=== PATIENT | female | born 1990 | race Two or more races ===

== ENCOUNTER 2017-07-30 08:08 | Inpatient (IN) | payer MEDICAID, OTHER ==
[~2017-07-30] VITALS: Ht 152.4 cm; Wt 97.0 kg
[~2017-07-30 08:08] MED LIST: ONDA4TAB12 PO
[2017-07-30] MEDS ORDERED: normal saline 1000ML IV soln IV ONE (08:25)
[2017-07-30] MEDS ORDERED: acetaminophen 325mg tablet PO ONE (08:25)
[2017-07-30 08:56] LABS: BASOPHILS % (AUTO) 0.5 % (0-1); EOSINOPHILS % (AUTO) 0 % (0-6); HEMATOCRIT 33.1 % (35.0-45.0); HEMOGLOBIN 11.1 g/dl (12.0-16.0); LYMPHOCYTES # (AUTO) 1.5 X10'3 (1.1-4.8); LYMPHOCYTES % (AUTO) 16.3 % (21-51); MEAN CORPUSCULAR HEMOGLOBIN 25.4 PG (27.0-31.0); MEAN CORPUSCULAR HGB CONC 33.4 % (33.0-36.5); MEAN CORPUSCULAR VOLUME 76.1 FL (78-98); MEAN PLATELET VOLUME 8.5 FL (7.4-10.4); MONOCYTES # (AUTO) 0.4 X10'3 (0-0.9); MONOCYTES % (AUTO) 3.9 % (2-12); NEUTROPHILS # (AUTO) 7.5 X10'3 (1.8-7.7); NEUTROPHILS % (AUTO) 79.3 % (42-75); PLATELET COUNT 288 X10'3 (140-440); RED BLOOD COUNT 4.35 X10'6 (4.20-5.60); RED CELL DISTRIBUTION WIDTH 17.4 % (11.5-14.5); WHITE BLOOD COUNT 9.4 X10'3 (4.5-11.0)
[2017-07-30 09:05] LABS: INR 1.2 INR; PARTIAL THROMBOPLASTIN TIME 29 SECONDS (22-32); PROTHROMBIN TIME 12.6 SECONDS (9.0-12.0)
[2017-07-30 09:09] LABS: ALANINE AMINOTRANSFERASE 38 U/L (12-78); ALBUMIN 2.9 G/DL (3.4-5.0); ALBUMIN/GLOBULIN RATIO 0.6 (1.1-1.5); ALKALINE PHOSPHATASE 74 IU/L (46-116); ANION GAP 11 (8-16); ASPARTATE AMINO TRANSFERASE 44 U/L (10-37); BILIRUBIN,TOTAL 0.9 MG/DL (0.1-1.0); BLOOD UREA NITROGEN 13 MG/DL (7-18); BUN/CREATININE RATIO 11.5 (6.6-38.0); CALCIUM 7.9 MG/DL (8.5-10.1); CHLORIDE 93 MMOL/L (99-107); CREATININE 1.13 MG/DL (0.40-0.90); GLUCOSE 108 MG/DL (70-104); SODIUM 130 MMOL/L (135-145); TOTAL CARBON DIOXIDE 26.5 MMOL/L (24-32); TOTAL PROTEIN 7.7 G/DL (6.4-8.2); eGFR 59 ML/MIN
[2017-07-30] MEDS ORDERED: potassium Cl 20 mEq SR tablet PO STA (09:39)
[2017-07-30] MEDS ORDERED: albuterol 2.5 MG/3 ML nebule NEB ONE (10:35)
[2017-07-30] MEDS ORDERED: levoFLOXACIN-Levaquin 750MG/D5 150 ML IV STA (10:37)
[2017-07-30] MEDS ORDERED: mag hydrox/Alum hydrox/simeth 30ml oral suspension PO PRN (11:25)
[2017-07-30] MEDS ORDERED: magnesium hydroxide 30ml (MOM) UD suspension PO PRN (11:25)
[2017-07-30] MEDS ORDERED: magnesium 4gm in 100ml NS 100 ML IV PRN (11:25)
[2017-07-30] MEDS ORDERED: bisacodyl 10mg suppository rectal RC PRN (11:25)
[2017-07-30] MEDS ORDERED: magnesium Cl slow-release 64mg tablet PO PRN (11:25)
[2017-07-30] MEDS ORDERED: magnesium 2GM in 50ml NS 50 ML IV PRN (11:25)
[2017-07-30] MEDS ORDERED: potassium Cl 40MEQ/NS 500ml 500 ML IV PRN ×2 (11:25)
[2017-07-30] MEDS ORDERED: potassium Cl 20 mEq SR tablet PO PRN ×2 (11:25)
[2017-07-30] MEDS: K and/or MAG REPLACEMENT MC SCH (11:59)
[2017-07-30 12:22] LABS: MAGNESIUM 1.8 MG/DL (1.5-2.4)
[2017-07-30 13:07] LABS: URINE HCG NEGATIVE (NEG)
[2017-07-30 13:24] LABS: URINE AMPHETAMINE SCREEN NEGATIVE (Neg); URINE BARBITUATE SCREEN NEGATIVE (Neg); URINE BENZODIAZEPINES SCREEN NEGATIVE (Neg); URINE CANNABINOID SCREEN NEGATIVE (Neg); URINE COCAINE SCREEN NEGATIVE (Neg); URINE METHADONE SCREEN NEGATIVE (Neg); URINE OPIATE SCREEN NEGATIVE (Neg); URINE PHENCYCLIDINE SCREEN NEGATIVE (Neg)
[2017-07-30 13:39] LABS: CLARITY,URINE CLOUDY (Clear); COLOR,URINE YELLOW (Yellow); GLUCOSE, URINE NEGATIVE (Neg); KETONES,URINE 40 mg/dl (Neg); LEUKOCYTE ESTERASE ,URINE LARGE (Neg); NITRITES, URINE NEGATIVE (Neg); OCCULT BLOOD,URINE MODERATE (Neg); PH,URINE 5.5 (4.8-8.0); PROTEIN,URINE NEGATIVE (Neg); UROBILINOGEN,URINE 0.2 E.U/dL (0.2-1.0)
[2017-07-30 13:42] LABS: UA COLLECTION TYPE CLN CATCH MIDSTREAM
[2017-07-30 13:50] LABS: BACTERIA,URINE 4+ /HPF (Neg); HYALINE CASTS 0-3 /LPF (NEGATIVE); MUCUS STRANDS MODERATE /LPF (Neg); RBC,URINE 0-2 /HPF (0-2); SQUAMOUS EPITHELIAL CELL,UR MODERATE /LPF (FEW)
[2017-07-30 13:51] LABS: CELLULAR CAST 0-4 /LPF (NEGATIVE)
[2017-07-30 14:50] VITALS: BP 117/62
[2017-07-30 15:00] VITALS: BP 104/55
[2017-07-30] MEDS: potassium CL 20mEq in D5-1/2NS 1,000 ML IV SCH (17:15)
[2017-07-30 20:00] VITALS: BP 101/57
[2017-07-30] MEDS: docusate sod 100mg capsule PO SCH (20:00)
[2017-07-30] MEDS: ipratropium/albuterol 3ml nebule NEB SCH (21:48)
[2017-07-31] VITALS: BP 108/59
[2017-07-31] MEDS ORDERED: ALBU8.5H8 IH (01:07)
[2017-07-31] MEDS ORDERED: BUDE10.22 INH (01:07)
[2017-07-31] MEDS: potassium CL 20mEq in D5-1/2NS 1,000 ML IV SCH ×3 (02:50→22:21)
[2017-07-31] MEDS: ipratropium/albuterol 3ml nebule NEB SCH ×4 (02:52→20:14)
[2017-07-31 05:56] LABS: BASOPHILS % (AUTO) 0.3 % (0-1); EOSINOPHILS % (AUTO) 0.8 % (0-6); HEMATOCRIT 27.4 % (35.0-45.0); LYMPHOCYTES # (AUTO) 1.1 X10'3 (1.1-4.8); LYMPHOCYTES % (AUTO) 25.5 % (21-51); MEAN CORPUSCULAR HEMOGLOBIN 25.3 PG (27.0-31.0); MEAN CORPUSCULAR HGB CONC 32.9 % (33.0-36.5); MEAN CORPUSCULAR VOLUME 76.9 FL (78-98); MEAN PLATELET VOLUME 8.3 FL (7.4-10.4); MONOCYTES # (AUTO) 0.4 X10'3 (0-0.9); MONOCYTES % (AUTO) 9.6 % (2-12); NEUTROPHILS # (AUTO) 2.7 X10'3 (1.8-7.7); NEUTROPHILS % (AUTO) 63.8 % (42-75); PLATELET COUNT 205 X10'3 (140-440); RED BLOOD COUNT 3.56 X10'6 (4.20-5.60); RED CELL DISTRIBUTION WIDTH 17.8 % (11.5-14.5); WHITE BLOOD COUNT 4.3 X10'3 (4.5-11.0)
[2017-07-31 06:29] LABS: ALANINE AMINOTRANSFERASE 39 U/L (12-78); ALBUMIN 2.3 G/DL (3.4-5.0); ALBUMIN/GLOBULIN RATIO 0.6 (1.1-1.5); ALKALINE PHOSPHATASE 62 IU/L (46-116); ANION GAP 10 (8-16); ASPARTATE AMINO TRANSFERASE 43 U/L (10-37); BILIRUBIN,TOTAL 0.4 MG/DL (0.1-1.0); BLOOD UREA NITROGEN 7 MG/DL (7-18); BUN/CREATININE RATIO 10.1 (6.6-38.0); CALCIUM 7.7 MG/DL (8.5-10.1); CHLORIDE 104 MMOL/L (99-107); CREATININE 0.69 MG/DL (0.40-0.90); GLUCOSE 95 MG/DL (70-104); MAGNESIUM 1.9 MG/DL (1.5-2.4); POTASSIUM 4.1 MMOL/L (3.5-5.1); SODIUM 139 MMOL/L (135-145); TOTAL CARBON DIOXIDE 25.5 MMOL/L (24-32); TOTAL PROTEIN 6.4 G/DL (6.4-8.2); eGFR > 90 ML/MIN
[2017-07-31 07:00] VITALS: BP 101/48
[2017-07-31] MEDS: K and/or MAG REPLACEMENT MC SCH (08:00)
[2017-07-31] MEDS: docusate sod 100mg capsule PO SCH ×2 (08:00→20:31)
[2017-07-31] MEDS ORDERED: levoFLOXACIN-Levaquin 500mg/D5 100 ML IV SCH ×2 (08:00)
[2017-07-31 11:00] VITALS: BP 97/44
[2017-07-31] MEDS ORDERED: ondansetron/PF 4mg/2ml inj IV PRN (17:50)
[2017-07-31 20:30] VITALS: BP 100/58
[2017-07-31] MEDS: lactobacillus rhamnosus 10,000 MMU CELLS/CAPSULE PO SCH (20:30)
[2017-07-31] MEDS: acetaminophen 325mg tablet PO PRN (20:31)
[2017-08-01] VITALS: BP 108/60
[2017-08-01] MEDS: ipratropium/albuterol 3ml nebule NEB SCH ×4 (03:26→20:11)
[2017-08-01 05:25] LABS: BASOPHILS % (AUTO) 0.5 % (0-1); EOSINOPHILS # (AUTO) 0.1 X10'3 (0-0.9); EOSINOPHILS % (AUTO) 1.4 % (0-6); HEMATOCRIT 27.2 % (35.0-45.0); LYMPHOCYTES # (AUTO) 1.4 X10'3 (1.1-4.8); LYMPHOCYTES % (AUTO) 34.6 % (21-51); MEAN CORPUSCULAR HEMOGLOBIN 25.3 PG (27.0-31.0); MEAN CORPUSCULAR VOLUME 76.6 FL (78-98); MEAN PLATELET VOLUME 9.2 FL (7.4-10.4); MONOCYTES # (AUTO) 0.4 X10'3 (0-0.9); MONOCYTES % (AUTO) 8.8 % (2-12); NEUTROPHILS # (AUTO) 2.2 X10'3 (1.8-7.7); NEUTROPHILS % (AUTO) 54.7 % (42-75); PLATELET COUNT 182 X10'3 (140-440); RED BLOOD COUNT 3.55 X10'6 (4.20-5.60); RED CELL DISTRIBUTION WIDTH 17.6 % (11.5-14.5); WHITE BLOOD COUNT 4.1 X10'3 (4.5-11.0)
[2017-08-01 05:58] LABS: ALANINE AMINOTRANSFERASE 43 U/L (12-78); ALBUMIN 2.2 G/DL (3.4-5.0); ALBUMIN/GLOBULIN RATIO 0.5 (1.1-1.5); ALKALINE PHOSPHATASE 68 IU/L (46-116); ANION GAP 7 (8-16); ASPARTATE AMINO TRANSFERASE 47 U/L (10-37); BILIRUBIN,TOTAL 0.5 MG/DL (0.1-1.0); BLOOD UREA NITROGEN 5 MG/DL (7-18); BUN/CREATININE RATIO 7.1 (6.6-38.0); CALCIUM 7.9 MG/DL (8.5-10.1); CHLORIDE 103 MMOL/L (99-107); GLUCOSE 114 MG/DL (70-104); MAGNESIUM 1.8 MG/DL (1.5-2.4); POTASSIUM 3.8 MMOL/L (3.5-5.1); SODIUM 137 MMOL/L (135-145); TOTAL CARBON DIOXIDE 27.2 MMOL/L (24-32); TOTAL PROTEIN 6.3 G/DL (6.4-8.2); eGFR > 90 ML/MIN
[2017-08-01 06:13] LABS: LARGE PLATELETS FEW; PLATELET ESTIMATE NORMAL
[2017-08-01 07:00] VITALS: BP 106/53
[2017-08-01] MEDS: docusate sod 100mg capsule PO SCH ×2 (07:39→19:53)
[2017-08-01] MEDS: lactobacillus rhamnosus 10,000 MMU CELLS/CAPSULE PO SCH ×2 (07:39→19:53)
[2017-08-01] MEDS: K and/or MAG REPLACEMENT MC SCH (08:00)
[2017-08-01] MEDS: potassium CL 20mEq in D5-1/2NS 1,000 ML IV SCH (08:50)
[2017-08-01 11:00] VITALS: BP 108/60
[2017-08-01] MEDS ORDERED: levoFLOXACIN 500mg tablet PO SCH (12:30)
[2017-08-01] MEDS: guaiFENesin ER 600mg tablet PO SCH ×2 (14:48→19:53)
[2017-08-01 19:30] VITALS: BP 106/61
[2017-08-01] MEDS: acetaminophen 325mg tablet PO PRN (19:33)
[2017-08-02] VITALS: BP 104/62
[2017-08-02] MEDS: ipratropium/albuterol 3ml nebule NEB SCH ×3 (02:58→16:30)
[2017-08-02 05:35] LABS: ABSOLUTE RETICS # 81400 /CUMM (23000-93000); HEMATOCRIT 26.8 % (35.0-45.0); HEMOGLOBIN 8.7 g/dl (12.0-16.0); MEAN CORPUSCULAR HGB CONC 32.3 % (33.0-36.5); MEAN CORPUSCULAR VOLUME 77.1 FL (78-98); MEAN PLATELET VOLUME 9.6 FL (7.4-10.4); PLATELET COUNT 175 X10'3 (140-440); RED BLOOD COUNT 3.47 X10'6 (4.20-5.60); RED CELL DISTRIBUTION WIDTH 17.9 % (11.5-14.5); WHITE BLOOD COUNT 4.5 X10'3 (4.5-11.0)
[2017-08-02 05:57] LABS: % IRON SATURATION 9 % (11-46); IRON 19 UG/DL (49-151); TOTAL IRON BINDING CAPACITY 223 UG/DL (259-388)
[2017-08-02 06:31] LABS: RETICULOCYTE % (AUTO) 2.3 % (0.5-1.5)
[2017-08-02 06:32] LABS: ALANINE AMINOTRANSFERASE 58 U/L (12-78); ALBUMIN 2.1 G/DL (3.4-5.0); ALBUMIN/GLOBULIN RATIO 0.5 (1.1-1.5); ALKALINE PHOSPHATASE 77 IU/L (46-116); ANION GAP 7 (8-16); ASPARTATE AMINO TRANSFERASE 64 U/L (10-37); BILIRUBIN,TOTAL 0.4 MG/DL (0.1-1.0); BLOOD UREA NITROGEN 6 MG/DL (7-18); BUN/CREATININE RATIO 8.3 (6.6-38.0); CALCIUM 8.3 MG/DL (8.5-10.1); CHLORIDE 104 MMOL/L (99-107); CREATININE 0.72 MG/DL (0.40-0.90); FERRITIN 211 NG/ML (8-252); GLUCOSE 90 MG/DL (70-104); POTASSIUM 3.8 MMOL/L (3.5-5.1); SODIUM 139 MMOL/L (135-145); TOTAL CARBON DIOXIDE 28.2 MMOL/L (24-32); TOTAL PROTEIN 6.3 G/DL (6.4-8.2); eGFR > 90 ML/MIN
[2017-08-02 06:43] LABS: BANDS% (MANUAL) 2 % (0-10); BASOPHILS % (MANUAL) 1 % (0-1); EOSINOPHILS % (MANUAL) 1 % (0-6); LYMPHOCYTES % (MANUAL) 40 % (21-51); METAMYLEOCYTES% (MANUAL) 1 % (0-0); MONOCYTES % (MANUAL) 12 % (2-12); NEUTROPHILS % (MANUAL) 42 % (42-75); TOTAL CELLS COUNTED 100
[2017-08-02 06:44] LABS: ANISOCYTOSIS 2+; NUCLEATED RED BLOOD CELLS 1 /100WBC (0-0); PLATELET ESTIMATE NORMAL; REACTIVE LYMPHOCYTES % 1 % (0-0); ROULEAUX 1+
[2017-08-02 07:00] VITALS: BP 75/54
[2017-08-02] MEDS: K and/or MAG REPLACEMENT MC SCH (08:00)
[2017-08-02] MEDS: lactobacillus rhamnosus 10,000 MMU CELLS/CAPSULE PO SCH ×2 (08:09→19:11)
[2017-08-02] MEDS: docusate sod 100mg capsule PO SCH ×2 (08:09→19:12)
[2017-08-02] MEDS: guaiFENesin ER 600mg tablet PO SCH ×2 (08:09→19:12)
[2017-08-02 09:30] VITALS: BP 105/49
[2017-08-02 11:00] VITALS: BP 101/60
[2017-08-02] MEDS ORDERED: CefTRIAXone/D5W-Rocephin 1gm 50 ML IV SCH (13:45)
[2017-08-02 16:16] LABS: ABG BASE EXCESS 3.4 mmol/L (-2.0-3.0); ABG HCO3 27.5 mmol/L (22.0-26.0); ABG OXYGEN SATURATION 84.6 % (95-98); ABG PH (T) 7.455 (7.350-7.450); ALLEN'S TEST Positive; FCOHb 0.3 % (0.5-1.5); FLOW 3 L/min; FMetHb 0.3 % (0.3-1.12); FO2Hb 84.1 % (94-100); TOTAL HEMOGLOBIN 10.8 G/dl (12.0-16.0)
[2017-08-02 18:30] VITALS: BP 103/51
[2017-08-02] MEDS: methylPREDNISolone sod succ/PF 40mg inj. IV SCH (19:11)
[2017-08-02] MEDS: acetaminophen 325mg tablet PO PRN (19:51)
[2017-08-02] MEDS: albuterol 2.5 MG/3 ML nebule NEB SCH ×2 (20:39→23:40)
[2017-08-03] VITALS: BP 104/62
[2017-08-03] MEDS: albuterol 2.5 MG/3 ML nebule NEB SCH ×6 (03:08→23:52)
[2017-08-03 04:59] LABS: BASOPHILS % (AUTO) 0.1 % (0-1); EOSINOPHILS # (AUTO) 0.1 X10'3 (0-0.9); EOSINOPHILS % (AUTO) 1.3 % (0-6); HEMATOCRIT 29.7 % (35.0-45.0); HEMOGLOBIN 9.6 g/dl (12.0-16.0); LYMPHOCYTES # (AUTO) 2.3 X10'3 (1.1-4.8); LYMPHOCYTES % (AUTO) 41.2 % (21-51); MEAN CORPUSCULAR HEMOGLOBIN 25.1 PG (27.0-31.0); MEAN CORPUSCULAR HGB CONC 32.4 % (33.0-36.5); MEAN CORPUSCULAR VOLUME 77.6 FL (78-98); MONOCYTES # (AUTO) 0.4 X10'3 (0-0.9); MONOCYTES % (AUTO) 7.2 % (2-12); NEUTROPHILS # (AUTO) 2.7 X10'3 (1.8-7.7); NEUTROPHILS % (AUTO) 50.2 % (42-75); PLATELET COUNT 214 X10'3 (140-440); RED BLOOD COUNT 3.83 X10'6 (4.20-5.60); WHITE BLOOD COUNT 5.5 X10'3 (4.5-11.0)
[2017-08-03 05:23] LABS: ALANINE AMINOTRANSFERASE 72 U/L (12-78); ALBUMIN 2.3 G/DL (3.4-5.0); ALBUMIN/GLOBULIN RATIO 0.5 (1.1-1.5); ALKALINE PHOSPHATASE 111 IU/L (46-116); ANION GAP 8 (8-16); ASPARTATE AMINO TRANSFERASE 57 U/L (10-37); BILIRUBIN,TOTAL 0.3 MG/DL (0.1-1.0); BLOOD UREA NITROGEN 5 MG/DL (7-18); BUN/CREATININE RATIO 8.5 (6.6-38.0); CALCIUM 8.6 MG/DL (8.5-10.1); CHLORIDE 103 MMOL/L (99-107); CREATININE 0.59 MG/DL (0.40-0.90); GLUCOSE 160 MG/DL (70-104); POTASSIUM 4.6 MMOL/L (3.5-5.1); SODIUM 140 MMOL/L (135-145); TOTAL CARBON DIOXIDE 29.5 MMOL/L (24-32); TOTAL PROTEIN 7.1 G/DL (6.4-8.2); eGFR > 90 ML/MIN
[2017-08-03 07:00] VITALS: BP 106/61
[2017-08-03] MEDS: docusate sod 100mg capsule PO SCH ×2 (07:45→21:03)
[2017-08-03] MEDS: lactobacillus rhamnosus 10,000 MMU CELLS/CAPSULE PO SCH ×2 (07:45→21:04)
[2017-08-03] MEDS: methylPREDNISolone sod succ/PF 40mg inj. IV SCH (07:45)
[2017-08-03] MEDS: guaiFENesin ER 600mg tablet PO SCH ×2 (07:45→21:04)
[2017-08-03] MEDS ORDERED: methylPREDNISolone sod succ/PF 40mg inj. IV SCH (08:00)
[2017-08-03] MEDS: K and/or MAG REPLACEMENT MC SCH (08:00)
[2017-08-03] MEDS ORDERED: CefTRIAXone/D5W-Rocephin 1gm 50 ML IV SCH (08:00)
[2017-08-03] MEDS ORDERED: ALBU2.5V7 NEB (09:54)
[2017-08-03] MEDS ORDERED: PRED10TA23 PO (09:54)
[2017-08-03 12:12] VITALS: BP 119/79
[2017-08-03 13:20] LABS: ABG BASE EXCESS 4.3 mmol/L (-2.0-3.0); ABG HCO3 28.7 mmol/L (22.0-26.0); ABG OXYGEN SATURATION 93.1 % (95-98); ABG PCO2 (T) 42.2 mmHg (32.0-45.0); ABG PH (T) 7.451 (7.350-7.450); ABG PO2 (T) 68.1 mmHg (83-108); FCOHb 0.1 % (0.5-1.5); FLOW 1 L/min; FMetHb 0.1 % (0.3-1.12); FO2Hb 92.9 % (94-100)
[2017-08-03 18:00] VITALS: BP 107/79
[2017-08-03 22:00] VITALS: BP 116/58
[2017-08-04] MEDS: albuterol 2.5 MG/3 ML nebule NEB SCH ×5 (02:58→19:49)
[2017-08-04 05:37] LABS: BASOPHILS % (AUTO) 0.4 % (0-1); EOSINOPHILS # (AUTO) 0.1 X10'3 (0-0.9); EOSINOPHILS % (AUTO) 1.1 % (0-6); HEMATOCRIT 27.7 % (35.0-45.0); LYMPHOCYTES % (AUTO) 45.8 % (21-51); MEAN CORPUSCULAR HEMOGLOBIN 24.9 PG (27.0-31.0); MEAN CORPUSCULAR HGB CONC 32.3 % (33.0-36.5); MEAN CORPUSCULAR VOLUME 77.1 FL (78-98); MEAN PLATELET VOLUME 9.5 FL (7.4-10.4); MONOCYTES # (AUTO) 0.6 X10'3 (0-0.9); NEUTROPHILS % (AUTO) 45.7 % (42-75); PLATELET COUNT 226 X10'3 (140-440); RED BLOOD COUNT 3.59 X10'6 (4.20-5.60); RED CELL DISTRIBUTION WIDTH 18.1 % (11.5-14.5); WHITE BLOOD COUNT 8.8 X10'3 (4.5-11.0)
[2017-08-04 05:50] LABS: ALANINE AMINOTRANSFERASE 56 U/L (12-78); ALBUMIN 2.3 G/DL (3.4-5.0); ALBUMIN/GLOBULIN RATIO 0.5 (1.1-1.5); ALKALINE PHOSPHATASE 98 IU/L (46-116); ANION GAP 7 (8-16); ASPARTATE AMINO TRANSFERASE 32 U/L (10-37); BILIRUBIN,TOTAL 0.2 MG/DL (0.1-1.0); BLOOD UREA NITROGEN 8 MG/DL (7-18); BUN/CREATININE RATIO 11.6 (6.6-38.0); CALCIUM 8.3 MG/DL (8.5-10.1); CHLORIDE 102 MMOL/L (99-107); CREATININE 0.69 MG/DL (0.40-0.90); GLUCOSE 101 MG/DL (70-104); MAGNESIUM 2.1 MG/DL (1.5-2.4); POTASSIUM 3.7 MMOL/L (3.5-5.1); SODIUM 139 MMOL/L (135-145); TOTAL CARBON DIOXIDE 29.7 MMOL/L (24-32); TOTAL PROTEIN 6.7 G/DL (6.4-8.2); eGFR > 90 ML/MIN
[2017-08-04 07:00] VITALS: BP 133/55
[2017-08-04 07:35] LABS: ANISOCYTOSIS 2+; MICROCYTOSIS 1+; PLATELET ESTIMATE NORMAL; POLYCHROMASIA 2+
[2017-08-04] MEDS: methylPREDNISolone sod succ/PF 40mg inj. IV SCH (07:45)
[2017-08-04] MEDS: docusate sod 100mg capsule PO SCH ×2 (07:45→20:03)
[2017-08-04] MEDS: guaiFENesin ER 600mg tablet PO SCH ×2 (07:45→20:03)
[2017-08-04] MEDS: lactobacillus rhamnosus 10,000 MMU CELLS/CAPSULE PO SCH ×2 (07:45→20:03)
[2017-08-04] MEDS: K and/or MAG REPLACEMENT MC SCH (07:49)
[2017-08-04 10:44] VITALS: BP 111/66
[2017-08-04 18:00] VITALS: BP 139/95
[2017-08-04 22:00] VITALS: BP 116/70
[2017-08-05] MEDS: albuterol 2.5 MG/3 ML nebule NEB SCH ×3 (00:32→08:24)
[2017-08-05 06:00] VITALS: BP 112/72
[2017-08-05] MEDS: K and/or MAG REPLACEMENT MC SCH (07:53)
[2017-08-05] MEDS: lactobacillus rhamnosus 10,000 MMU CELLS/CAPSULE PO SCH ×2 (07:59→19:51)
[2017-08-05] MEDS: guaiFENesin ER 600mg tablet PO SCH ×2 (07:59→19:51)
[2017-08-05] MEDS: docusate sod 100mg capsule PO SCH ×2 (08:00→19:51)
[2017-08-05] MEDS: predniSONE 20 mg tablet PO SCH (08:00)
[2017-08-05] MEDS ORDERED: albuterol 2.5 MG/3 ML nebule NEB PRN (09:10)
[2017-08-05 10:00] VITALS: BP 117/64
[2017-08-05] MEDS: levoFLOXACIN 750MG TABLET PO SCH (10:41)
[2017-08-05 18:00] VITALS: BP 123/57
[2017-08-05 22:00] VITALS: BP 117/72
[2017-08-06 06:00] VITALS: BP 103/62
[2017-08-06 06:41] LABS: RED BLOOD COUNT 4.15 X10'6 (4.20-5.60); RETICULOCYTE % (AUTO) 3.7 % (0.5-1.5)
[2017-08-06] MEDS: K and/or MAG REPLACEMENT MC SCH (08:00)
[2017-08-06] MEDS: guaiFENesin ER 600mg tablet PO SCH ×2 (08:47→19:27)
[2017-08-06] MEDS: predniSONE 20 mg tablet PO SCH (08:47)
[2017-08-06] MEDS: lactobacillus rhamnosus 10,000 MMU CELLS/CAPSULE PO SCH ×2 (08:48→19:27)
[2017-08-06] MEDS: docusate sod 100mg capsule PO SCH ×2 (08:48→19:27)
[2017-08-06 10:30] VITALS: BP 105/66
[2017-08-06] MEDS: levoFLOXACIN 750MG TABLET PO SCH (10:38)
[2017-08-06 18:00] VITALS: BP 112/63
[2017-08-06 22:00] VITALS: BP 114/74
[2017-08-07 06:00] VITALS: BP 94/60
[2017-08-07] MEDS: K and/or MAG REPLACEMENT MC SCH (07:46)
[2017-08-07] MEDS: docusate sod 100mg capsule PO SCH (07:48)
[2017-08-07] MEDS: lactobacillus rhamnosus 10,000 MMU CELLS/CAPSULE PO SCH (07:48)
[2017-08-07] MEDS: guaiFENesin ER 600mg tablet PO SCH (07:49)
[2017-08-07] MEDS: predniSONE 20 mg tablet PO SCH (07:49)
[2017-08-07] MEDS ORDERED: ferrous sulfate 325mg tablet PO SCH (08:00)
[2017-08-07 10:00] VITALS: BP 102/55
[2017-08-07] MEDS: levoFLOXACIN 750MG TABLET PO SCH (11:26)
== END 2017-08-07 14:40 | disposition home or self-care (01) | DRG 190 ==
LOC: ER 08:08 → OBSVTOIN 11:21 → ED HOLD 11:21 → EDBEDREQ 11:36 → SUR 3N 14:54 → ORTHO 4S 08-03 11:43
PROVIDERS: ADMIT Emergency Medicine; ATTEND Family Medicine
PROC: 5A09357 Assistance with Respiratory Ventilation, Less than 24 Consecutive Hours, Continuous Positive Airway Pressure (ICD-10-PCS; principal; 2017-07-31)
PROC: 5A09357 Assistance with Respiratory Ventilation, Less than 24 Consecutive Hours, Continuous Positive Airway Pressure (ICD-10-PCS; 2017-07-31)
PROC: 5A09357 Assistance with Respiratory Ventilation, Less than 24 Consecutive Hours, Continuous Positive Airway Pressure (ICD-10-PCS; 2017-08-01)
PROC: 5A09357 Assistance with Respiratory Ventilation, Less than 24 Consecutive Hours, Continuous Positive Airway Pressure (ICD-10-PCS; 2017-08-03)
PROC: 5A09457 Assistance with Respiratory Ventilation, 24-96 Consecutive Hours, Continuous Positive Airway Pressure (ICD-10-PCS; 2017-08-05)
DX: J44.0 Chronic obstructive pulmonary disease with (acute) lower respiratory infection (principal); J18.9 Pneumonia, unspecified organism; Z99.11 Dependence on respirator [ventilator] status; J45.901 Unspecified asthma with (acute) exacerbation; Z68.41 Body mass index [BMI] 40.0-44.9, adult; N39.0 Urinary tract infection, site not specified; J44.1 Chronic obstructive pulmonary disease with (acute) exacerbation; D50.9 Iron deficiency anemia, unspecified; E87.6 Hypokalemia; G47.33 Obstructive sleep apnea (adult) (pediatric); N28.9 Disorder of kidney and ureter, unspecified; Z59.0 Homelessness; Z79.51 Long term (current) use of inhaled steroids; Z91.040 Latex allergy status; Z79.899 Other long term (current) drug therapy; Z90.49 Acquired absence of other specified parts of digestive tract
CPT/HCPCS: 36415; 36600; 71045; 80053; 80305; 81001; 81025; 82607; 82728; 82746; 82803; 83540; 83550; 83605; 83735; 84145; 85018; 85025; 85045; 85610; 85730; 86880; 87040; 87070; 87077; 87088; 87186; 87502; 87503; 93306; 94640; 94660; 94667; 94668; 94760; J0696; J1956; J2405; J2920; J7030; J7512

== ENCOUNTER 2019-04-02 10:43 | Emergency (ER) | payer MEDICAID, OTHER ==
[~2019-04-02] VITALS: Ht 152.4 cm; Wt 111.8 kg
[~2019-04-02 10:43] MED LIST changes: +ALBU2.5V7 NEB; +ALBU8.5H8 IH; +BUDE10.22 INH; -ONDA4TAB12 PO
[2019-04-02] MEDS ORDERED: normal saline 1000ML IV soln IVB ONE (12:00)
[2019-04-02] MEDS ORDERED: ondansetron/PF 4mg/2ml inj IV ONE (12:00)
[2019-04-02] MEDS ORDERED: morphine 4 MG/ML inj SYRINge IV PRN (12:00)
[2019-04-02 12:33] LABS: BASOPHILS # (AUTO) 0.1 X10'3 (0-0.2); EOSINOPHILS % (AUTO) 0.5 % (0-6); HEMOGLOBIN 13.9 g/dl (12.0-16.0); LYMPHOCYTES # (AUTO) 2.2 X10'3 (1.1-4.8); LYMPHOCYTES % (AUTO) 30.2 % (21-51); MEAN CORPUSCULAR HEMOGLOBIN 27.1 PG (27.0-31.0); MEAN CORPUSCULAR HGB CONC 33.2 g/dL (33.0-36.5); MEAN CORPUSCULAR VOLUME 81.7 FL (78-98); MEAN PLATELET VOLUME 8.9 FL (7.4-10.4); MONOCYTES # (AUTO) 0.5 X10'3 (0-0.9); MONOCYTES % (AUTO) 6.3 % (2-12); NEUTROPHILS # (AUTO) 4.5 X10'3 (1.8-7.7); PLATELET COUNT 278 X10'3 (140-440); RED BLOOD COUNT 5.13 X10'6 (4.20-5.60); RED CELL DISTRIBUTION WIDTH 15.5 % (11.5-14.5); WHITE BLOOD COUNT 7.3 X10'3 (4.5-11.0)
[2019-04-02 12:48] LABS: ALANINE AMINOTRANSFERASE 78 U/L (12-78); ALBUMIN 4.2 G/DL (3.4-5.0); ALBUMIN/GLOBULIN RATIO 0.9 (1.1-1.5); ALKALINE PHOSPHATASE 64 IU/L (46-116); ANION GAP 9 (8-16); ASPARTATE AMINO TRANSFERASE 43 U/L (10-37); BILIRUBIN,TOTAL 0.6 MG/DL (0.1-1.0); BLOOD UREA NITROGEN 6 MG/DL (7-18); BUN/CREATININE RATIO 8.5 (6.6-38.0); CHLORIDE 97 MMOL/L (99-107); CREATININE 0.71 MG/DL (0.40-0.90); GLUCOSE 129 MG/DL (70-104); LIPASE 111 U/L (73-393); SODIUM 138 MMOL/L (135-145); TOTAL CARBON DIOXIDE 32.5 MMOL/L (24-32); TOTAL PROTEIN 8.7 G/DL (6.4-8.2); eGFR > 90 ML/MIN
[2019-04-02] MEDS ORDERED: potassium Cl 20 mEq SR tablet PO ONE (13:10)
[2019-04-02] MEDS ORDERED: ONDA4TAB6 PO (13:12)
[2019-04-02 13:37] LABS: CLARITY,URINE TURBID (Clear); COLOR,URINE YELLOW (Yellow); GLUCOSE, URINE NEGATIVE (Neg); KETONES,URINE 40 mg/dl (Neg); LEUKOCYTE ESTERASE ,URINE SMALL (Neg); NITRITES, URINE NEGATIVE (Neg); OCCULT BLOOD,URINE LARGE (Neg); PROTEIN,URINE 30 mg/dl (Neg); UROBILINOGEN,URINE 0.2 E.U/dL (0.2-1.0)
[2019-04-02 13:38] LABS: URINE HCG NEGATIVE (NEG)
[2019-04-02] MEDS ORDERED: diphenhydrAMINE 50 mg/ml inj IV ONE (13:40)
[2019-04-02] MEDS ORDERED: proCHLORperazine 10 MG/2 ml inj IV ONE (13:40)
[2019-04-02 13:45] LABS: UA COLLECTION TYPE CLN CATCH MIDSTREAM
[2019-04-02 13:47] LABS: SQUAMOUS EPITHELIAL CELL,UR MANY /LPF (FEW)
[2019-04-02 13:48] LABS: HYALINE CASTS 0-3 /LPF (NEGATIVE)
[2019-04-02 13:49] LABS: BACTERIA,URINE 4+ /HPF (Neg)
[2019-04-02 13:50] LABS: MUCUS STRANDS MANY /LPF (Neg)
[2019-04-02 13:51] LABS: RBC,URINE 20-50 /HPF (0-2)
[2019-04-02] MEDS ORDERED: ipratropium/albuterol 3ml nebule NEB ONE (14:00)
[2019-04-02 15:10] VITALS: BP 123/90
== END 2019-04-02 15:12 | disposition home or self-care (01) ==
LOC: ER 10:43
DX: A08.4 Viral intestinal infection, unspecified (principal); R11.2 Nausea with vomiting, unspecified; J45.909 Unspecified asthma, uncomplicated; Z90.49 Acquired absence of other specified parts of digestive tract; Z59.0 Homelessness; Z91.040 Latex allergy status; Z79.899 Other long term (current) drug therapy
CPT/HCPCS: 36415; 71045; 80053; 81001; 81025; 83690; 85025; 94640; 96361; 96374; 96375; 99284; J0780; J1200; J2270; J2405; J7030; 94760

== ENCOUNTER 2019-05-09 01:11 | Emergency (ER) | payer MEDICAID ==
[~2019-05-09] VITALS: Ht 152.4 cm; Wt 113.6 kg
[~2019-05-09 01:11] MED LIST changes: +ONDA4TAB6 PO
[2019-05-09 01:19] VITALS: BP 151/97
--- NOTE | 2019-05-09 02:22 | NUR ---
dr. [email or web address] at bedside assessing patient
[2019-05-09 02:56] LABS: CLARITY,URINE CLOUDY (Clear); COLOR,URINE YELLOW (Yellow); GLUCOSE, URINE NEGATIVE (Neg); KETONES,URINE NEGATIVE (Neg); LEUKOCYTE ESTERASE ,URINE SMALL (Neg); NITRITES, URINE NEGATIVE (Neg); OCCULT BLOOD,URINE NEGATIVE (Neg); PROTEIN,URINE NEGATIVE (Neg); UROBILINOGEN,URINE 0.2 E.U/dL (0.2-1.0)
[2019-05-09 03:13] LABS: UA COLLECTION TYPE CLN CATCH MIDSTREAM
[2019-05-09 03:15] LABS: BACTERIA,URINE 2+ /HPF (Neg); RBC,URINE NONE SEEN /HPF (0-2); SQUAMOUS EPITHELIAL CELL,UR MANY /LPF (FEW)
[2019-05-09] MEDS ORDERED: CEPH500C5 PO (03:22)
== END 2019-05-09 03:15 | disposition home or self-care (01) ==
LOC: ER 01:11
DX: N39.0 Urinary tract infection, site not specified (principal); M79.18 Myalgia, other site; M54.9 Dorsalgia, unspecified; J45.909 Unspecified asthma, uncomplicated; Z90.49 Acquired absence of other specified parts of digestive tract; Z59.0 Homelessness; Z91.040 Latex allergy status; Z79.899 Other long term (current) drug therapy
CPT/HCPCS: 81001; 87502; 87503; 99283